=== PATIENT | male | born 1950 | race Caucasian/White ===

== ENCOUNTER 2017-04-30 11:44 | Day surgery (SDC) | payer BC ==
[2017-04-29 10:39] VITALS: BMI 31.9
--- NOTE | 2017-04-30 13:38 | OP ---
DATE OF PROCEDURE: 04/30/2017 TITLE OF PROCEDURE: Colonoscopy with snare polypectomy. PREOPERATIVE DIAGNOSIS: History of colon polyps. POSTOPERATIVE DIAGNOSES: 1. Exam to cecum; good bowel preparation. 2. Diminutive cecal polyp (3 mm), removed by cold snare technique. 3. No other synchronous polyps identified. 4. Small internal hemorrhoids. 5. Otherwise normal colonoscopy. PROCEDURE IN DETAIL: Written informed consent was obtained. The patient was brought to the endoscop y suite. Total intravenous anesthesia was provided by Dr. Mackey and associates. The patient was plac ed in the left lateral decubitus position. A digital rectal exam was performed, which revealed a sma ll perianal skin tag. A Pentax video colonoscope was inserted through the anal canal and advanced [place] direct visualization to the cecum. Position in the cecum was verified by clear identification of the appendiceal orifice and the ileocecal valve. The quality of the bowel preparation was good. Ea ch colon segment was examined carefully as the colonoscope was slowly withdrawn from the cecum. Vasc ular pattern and haustral folds appeared normal. In the cecum, a diminutive 3 mm sessile polyp was i dentified and removed by cold snare technique. The tissue was retrieved for pathology. No other syn chronous polyps were identified. In the sigmoid colon, scattered subepithelial petechiae and patchy erythema was noted. This endoscopic appearance was consistent with mild ischemia. Biopsies were obt ained for histology. No ulcer was identified. In the rectum, a retroflexed view demonstrated small internal hemorrhoids that were not actively bleeding. The colon was decompressed as the colonoscope was removed from the patient. He was transferred to the day stay surgery area for post-procedure mon itoring. There were no immediate complications. RECOMMENDATIONS: 1. Await pathology results and ask patient to call me in 1 week for these results. 2. Repeat colonoscopy in five years. 3. Masood english t.i.raghav. p.r.n. hemorrhoids. 4. Follow up with Gastroenterology as needed.
[2017-04-30] MEDS ORDERED: Lidocaine 1% PF 5 ML VIAL ONE (13:54)
[2017-04-30] MEDS ORDERED: PROPOFOL 200 MG/20 ML VIAL ONE (13:54)
== END 2017-04-30 14:30 | disposition home or self-care (01) ==
LOC: SDC 11:44
PROVIDERS: ATTEND Internal Medicine Gastroenterology
PROC: 0DBH8ZX Excision of Cecum, Via Natural or Artificial Opening Endoscopic, Diagnostic (ICD-10-PCS; principal; 2017-04-30)
PROC: 0DBN8ZX Excision of Sigmoid Colon, Via Natural or Artificial Opening Endoscopic, Diagnostic (ICD-10-PCS; principal; 2017-04-30)
DX: Z12.11 Encounter for screening for malignant neoplasm of colon (principal); K63.5 Polyp of colon; F41.9 Anxiety disorder, unspecified; K64.8 Other hemorrhoids; E78.00 Pure hypercholesterolemia, unspecified; I25.10 Atherosclerotic heart disease of native coronary artery without angina pectoris; J30.2 Other seasonal allergic rhinitis; F17.290 Nicotine dependence, other tobacco product, uncomplicated; Z79.82 Long term (current) use of aspirin; Z79.899 Other long term (current) drug therapy; Z91.048 Other nonmedicinal substance allergy status; Z95.810 Presence of automatic (implantable) cardiac defibrillator; Z87.19 Personal history of other diseases of the digestive system
CPT/HCPCS: 88305; J2001; J2704

== ENCOUNTER 2018-03-27 11:26 | Emergency (ER) | payer MEDICARE ==
[~2018-03-27 11:26] MED LIST: ISOVUE-370 76%-LOCM 1 ML ONE
[2018-03-27 12:48] LABS: #Basophils 0.1 thou/uL (0.0-0.2); #Eosinphils 0.2 thou/uL (0.0-0.7); #Lymphocytes 2.3 thou/uL (1.20-3.40); #Monocytes 1.1 thou/uL (0.11-0.59); #Neutrophils 10.1 thou/uL (1.40-6.50); %Basophils 0.4 % (0.0-1.0); %Eosinophils 1.3 % (0.0-10.0); %Lymphocytes 16.8 % (21.0-51.0); %Monocytes 7.8 % (0.0-10.0); %Neutrophils 73.7 % (42.0-75.0); Hemoglobin 14.4 g/dL (14.0-18.0); Mean Corpuscular HGB CONC 33.9 g/dL (32.0-36.0); Mean Corpuscular Volume 91.6 fL (78.0-98.0); Mean Platelet Volume 6.6 fL (7.4-10.4); Platelet Count 190 thou/uL (130-400); RBC Distribution Width 11.4 % (11.5-14.5); Red Blood Cell (RBC) Count 4.65 mill/uL (4.70-6.10); White Blood Cell (WBC) Count 13.6 thou/uL (4.8-10.8)
[2018-03-27 13:11] LABS: ALT (SGPT) 17 U/L (8-55); AST (SGOT) 15 U/L (5-34); Albumin 4.2 g/dL (3.4-4.8); Alkaline Phosphatase 80 U/L (40-150); Anion Gap 11 mmol/L (10-20); BUN (Urea Nitrogen) 11 mg/dL (8.4-25.7); Bilirubin, Total 1.2 mg/dL (0.2-1.2); Calc. Creatinine Clearance 0 mL/min (70-130); Calcium 9.6 mg/dL (7.8-10.44); Carbon Dioxide 24 mmol/L (23-31); Chloride 106 mmol/L (98-107); Estimated GFR-MDRD Greater than 90; Globulin 3.2 g/dL (2.4-3.5); Glucose 101 mg/dL (80-115); Potassium 4.1 mmol/L (3.5-5.1); Protein, Total 7.4 g/dL (5.8-8.1); Sodium 137 mmol/L (136-145)
[2018-03-27 14:15] LABS: Bilirubin Negative (Negative); Blood, Urine Negative (Negative); Clarity CLEAR (Clear); Glucose, Urine (Dipstick) Negative (Negative); Leukocyte Negative (Negative); Nitrite Negative (Negative); Protein, Urine (Dipstick) Negative (Neg-Trace); Specific Gravity, Urine 1.012 (1.002-1.036); Urobilinogen 0.2 mg/dL (0.2-1.0)
--- NOTE | 2018-03-27 15:01 | CT ---
CT ABDOMEN WITH CONTRAST CT PELVIS WITH CONTRAST: DATE: 03/27/18 HISTORY: 67-year-old male with generalized abdominal pain. Additional right hip pain. COMPARISON: 05/08/12. TECHNIQUE: IV injection of iodinated contrast media: 100 mL [id number]. Oral contrast media: Not administered. FINDINGS: Lung bases are grossly clear. No pneumoperitoneum or ascites. Previously, there was diverticulitis in the sigmoid colon on the 2012 CT. Currently, there is no evidence of diverticulitis. There is a larg e number of diverticula throughout the sigmoid colon. No small bowel dilation. Normal appendix, bilat eral kidneys, pancreas, adrenals, spleen, and liver. No abdominal aortic aneurysm. No significant int raperitoneal lymphadenopathy. Distended but otherwise normal urinary bladder. There is a new finding of thin, approximately 1.0 x 1.5 x 0.8 cm structure within the intraperitoneal fat slightly anterior to the proximal sigmoid colon. It contains central fat density and has thin rim of soft tissue densit y. This is probably an epiploic appendage. No definite fat stranding around it to indicate epiploic a ppendagitis. On the previous CT, there was a single, very small, focal calcification in the soft tissues just ante rior to the right anterolateral acetabulum. Now, that area has a greater number of clustered calcific ations. Patient is reportedly having pain in the right hip. There are no significant degenerative cesar nges in the bilateral hip joints themselves. IMPRESSION: 1. Increasing cluster of calcifications in the soft tissues anterior to the right femoral head. Exac t etiology is uncertain, but one possibility is HADD (hydroxyapatite deposition disease). The acute m anifestation of this would be calcific tendinitis. Clinical correlation is recommended. 2. Sigmoid colonic diverticulosis without diverticulitis. 3. A ring-shaped structure adjacent to the proximal sigmoid colon, consistent with an epiploic appen dage. No definite signs of epiploic appendagitis, but clinical correlation is recommended (is there l eft lower quadrant pain?). JNR POS: DIEGO
[2018-03-27] MEDS ORDERED: Ketorolac Tromethamine 30 MG/ML VIAL ONE (15:16)
== END 2018-03-27 15:58 | disposition home or self-care (01) ==
LOC: ERS 11:26
DX: M65.28 Calcific tendinitis, other site (principal); I25.2 Old myocardial infarction; I25.10 Atherosclerotic heart disease of native coronary artery without angina pectoris; F17.220 Nicotine dependence, chewing tobacco, uncomplicated; Z79.891 Long term (current) use of opiate analgesic; Z79.899 Other long term (current) drug therapy
CPT/HCPCS: 36415; 74177; 80053; 81003; 83605; 85025; 86140; 96374; J1885; Q9966

== ENCOUNTER 2020-11-08 10:15 | Day surgery (SDC) | payer MEDICARE, OTHER ==
[2020-11-07 12:53] VITALS: BMI 29.2
[2020-11-08] MEDS ORDERED: Phenylephrine 10 MG/ML VIAL ONE (12:17)
[2020-11-08] MEDS ORDERED: Fentanyl 100 MCG/2 ML VIAL ONE (12:17)
[2020-11-08] MEDS ORDERED: Ketamine 50 MG/ML (10ML VIAL) ONE (12:17)
[2020-11-08] MEDS ORDERED: PROPOFOL 200 MG/20 ML VIAL ONE (12:44)
[2020-11-08] MEDS ORDERED: PHENYLEPHRINE-NS 100 MCG/ML 10 ML SYRINGE ONE (12:44)
[2020-11-08] MEDS ORDERED: Lidocaine 1% PF 5 ML VIAL ONE (12:44)
== END 2020-11-08 14:15 | disposition home or self-care (01) ==
LOC: SDC 10:15
PROVIDERS: ATTEND Internal Medicine Gastroenterology
PROC: 0DBK8ZX Excision of Ascending Colon, Via Natural or Artificial Opening Endoscopic, Diagnostic (ICD-10-PCS; principal; 2020-11-08)
PROC: 0DBL8ZX Excision of Transverse Colon, Via Natural or Artificial Opening Endoscopic, Diagnostic (ICD-10-PCS; 2020-11-08)
PROC: 0DBN8ZX Excision of Sigmoid Colon, Via Natural or Artificial Opening Endoscopic, Diagnostic (ICD-10-PCS; 2020-11-08)
PROC: 0DBN8ZX Excision of Sigmoid Colon, Via Natural or Artificial Opening Endoscopic, Diagnostic (ICD-10-PCS; 2020-11-08)
DX: D12.5 Benign neoplasm of sigmoid colon (principal); K63.5 Polyp of colon; K57.30 Diverticulosis of large intestine without perforation or abscess without bleeding; K64.8 Other hemorrhoids; I50.9 Heart failure, unspecified; I25.2 Old myocardial infarction; E78.00 Pure hypercholesterolemia, unspecified; I42.9 Cardiomyopathy, unspecified; I25.10 Atherosclerotic heart disease of native coronary artery without angina pectoris; Z86.010 Personal history of colon polyps; Z87.891 Personal history of nicotine dependence; Z79.82 Long term (current) use of aspirin; Z79.899 Other long term (current) drug therapy; Z91.048 Other nonmedicinal substance allergy status; Z95.810 Presence of automatic (implantable) cardiac defibrillator
CPT/HCPCS: 88305; J2370; J2704; J3010

== ENCOUNTER 2023-04-23 14:09 | Emergency (ER) | payer MEDICARE, OTHER ==
[2023-04-23] MEDS ORDERED: Ibuprofen 800 MG TAB ONE (15:15)
== END 2023-04-23 16:50 | disposition home or self-care (01) ==
LOC: ERS 14:09
DX: S06.0X0A Concussion without loss of consciousness, initial encounter (principal); S52.124A Nondisplaced fracture of head of right radius, initial encounter for closed fracture; I25.10 Atherosclerotic heart disease of native coronary artery without angina pectoris; I25.2 Old myocardial infarction; K57.92 Diverticulitis of intestine, part unspecified, without perforation or abscess without bleeding; F17.220 Nicotine dependence, chewing tobacco, uncomplicated; W11.XXXA Fall on and from ladder, initial encounter; Z95.0 Presence of cardiac pacemaker; Z55.6 Problems related to health literacy; Z79.82 Long term (current) use of aspirin
CPT/HCPCS: 70450; 72125; 93005

== ENCOUNTER 2024-10-13 12:26 | Emergency (ER) | payer MEDICARE, OTHER ==
[2024-10-13] MEDS ORDERED: predniSONE 20 MG TAB ONE (15:54)
[2024-10-13] MEDS ORDERED: Orphenadrine Citrate 60 MG/2 ML VIAL ONE (15:54)
== END 2024-10-13 16:14 | disposition home or self-care (01) ==
LOC: ERS 12:26
DX: M50.922 Unspecified cervical disc disorder at C5-C6 level (principal); M50.923 Unspecified cervical disc disorder at C6-C7 level; M50.30 Other cervical disc degeneration, unspecified cervical region; I25.10 Atherosclerotic heart disease of native coronary artery without angina pectoris; I25.2 Old myocardial infarction; F17.220 Nicotine dependence, chewing tobacco, uncomplicated; Z79.82 Long term (current) use of aspirin; Z79.899 Other long term (current) drug therapy
CPT/HCPCS: 72040; J2360; 96372; 99283; J7512